=== PATIENT | female | born 1985 | race Caucasian/White ===

== ENCOUNTER 2022-04-01 13:10 | Outpatient (CLI) | payer BC, MEDICAID, SELFPAY ==
[2022-04-01 18:06] LABS: Albumin* 4.4 g/dL (3.3-5.0); Chloride* 103 mmol/L (96-114)
[2022-04-01 18:07] LABS: Potassium* 4.4 mmol/L (3.6-5.1); Sodium* 138 mmol/L (135-149)
[2022-04-01 18:09] LABS: Carbon Dioxide* 25 mmol/L (20-32); Creatinine* 0.8 mg/dL (0.5-1.5); Estimated Glomerular Filt Rate 98 ml/min
[2022-04-01 18:10] LABS: Alanine Aminotransferase* 14 U/L (4-35); Alkaline Phosphatase* 78 U/L (40-150); Aspartate Amino Transferase* 19 U/L (12-35); Bilirubin Total* 0.3 mg/dL (0.1-1.5); Blood Urea Nitrogen* 9 mg/dL (5-24); Calcium* 9.1 mg/dL (8.4-10.6); Glucose* 84 mg/dL (60-115); Total Protein* 7.2 g/dL (6.0-8.3)
== END 2022-04-01 13:11 | disposition home or self-care (01) ==
LOC: NFLDREF 13:11
PROVIDERS: PCP Internal Medicine; Visit Provider Internal Medicine
DX: R53.83 Other fatigue (principal)
CPT/HCPCS: 80053; 87086

== ENCOUNTER 2023-11-21 10:51 | Outpatient (CLI) | payer BC, MEDICAID, SELFPAY ==
--- OUTSIDE RECORDS SUMMARY | 2023-11-23 07:33 | XMS_ITS | Clinical Summary ---
Author Name Unknown Organization [facility] Address [address] [place] [address] Care Team Providers Care Cable Maintainer Name Role Phone No Primary/Referring, Phy Primary Care Provider Unavailable Source Comments You are receiving this document as you are listed as the primary care provider,follow-up provider, or the patient has been referred to you for consultation.This is in compliance with the Medicare and[facility] EHR Incentive Program,which states Providers who transition their patient to another setting of careor provider of care or refers their patient to another provider of care shouldprovide summary care record for each transition of care or referral. [facility] Allergies No known active allergies Medications Medication Sig Dispensed Refills Start Date End Date Status ibuprofen (AKA MOTRIN) 800 MG tabletIndications:LISA SPANN TueSep 26, 2015 10:49 AM Received from: External Pharmacy Indications: PN: LISA BACA TueSep 26, 2015 10:49 AM Received from: External Pharmacy 0 08/09/2015 Active traMADol (AKA ULTRAM) 50 MG tabletIndications:LISA SPANN TueSep 26, 2015 10:49 AM Received from: External Pharmacy Indications: PN: LISA BACA TueSep 26, 2015 10:49 AM Received from: External Pharmacy 0 09/23/2015 Active penicillin V potassium (AKA PEN VEE K) 500 MG tabletIndications:LISA SPANN TueSep 26, 2015 10:49 AM Received from: External Pharmacy Indications: PN: LISA BACA TueSep 26, 2015 10:49 AM Received from: External Pharmacy 0 08/09/2015 Active HYDROcodone-acetamin ophen (AKA NORCO) 7.5-325 MG tabletIndications:DHIRAJ KATARZYNALISA INMAN TueSep 26, 2015 10:49 AM Received from: External Pharmacy Indications: PN: LISA BACA TueSep 26, 2015 10:49 AM Received from: External Pharmacy 0 08/09/2015 Active VENTOLIN HFA 108 (90 Base) MCG/ACT inhaler SMARTSI inhalation Via Inhaler Every 8 Hours PRN 01/28/2023 Active clobetasol (TEMOVATE) 0.05 % cream Apply topically two times a day. 01/21/2023 Active escitalopram oxalate (LEXAPRO) 20 MG tablet Take 1 Tablet (20 mg) by mouth daily. 02/10/2023 Active gabapentin (NEURONTIN) 100 MG capsule SMARTSI Milligram(s) By Mouth Every Night PRN 03/21/2023 Active naproxen (NAPROSYN) 500 MG tablet SMARTSI Milligram(s) By Mouth Twice Daily PRN 11/18/[address] (PROTONIX) 40 MG tablet Take 1 Tablet (40 mg) by mouth daily. 03/18/2023 Active rizatriptan (MAXALT) 10 MG tablet Take by mouth. 03/18/2023 Active tiZANidine (ZANAFLEX) 4 MG tablet Take 1 Tablet (4 mg) by mouth two times a day. 03/21/2023 Active traMADol (ULTRAM) 50 MG tablet Take 2 Tablets (100 mg) by mouth 4 times daily as needed. 03/21/2023 Active triamcinolone acetonide (KENALOG) 0.1 % cream Apply topically two times a day. 01/25/2023 Active Social History Tobacco Use Types Packs/Day Years Used Date Smoking Tobacco: Light Smoker Alcohol Use Standard Drinks/Week Comments Yes 0 (1 standard drink = 0.6 oz pur e alcohol) Sex and Gender Information Value Date Recorded Sex Assigned at Not on file Gender Identity Not on file Sexual Orientation Not on file Last Filed Vital Signs Vital Sign Reading Time Taken Comments Blood Pressure 121/82 09/26/2015 11:05 AM ENGINE SERVICE REPAIRER Pulse - - Temperature - - Respiratory Rate - - Oxygen Saturation - - Inhaled Oxygen Concentration - - Weight 52.2 kg (115 lb) 09/26/2015 11:05 AM ENGINE SERVICE REPAIRER Height 167.6 cm (5' 6) 09/26/2015 11:05 AM ENGINE SERVICE REPAIRER Body Mass Index 18.56 09/26/2015 11:05 AM ENGINE SERVICE REPAIRER Plan of Treatment Health Maintenance Due Date Last Done Comments Cervical Cancer Screening Due 1985 Hep C Screening (Preventive Services) 1985 Pneumococcal (1 - PCV) 11/21/1991 HIV Screening (Preventive Services) 2001 Adult Preventive Visit 11/21/2003 DTaP/Tdap/Td (1 - Tdap) 2004 HepB (1) 2004 COVID-19 Vaccine (1 - 2022-2 4 season) 2023 Influenza (#1) 2023 Zoster/Shingles (1 of 2) 11/21/2035 HPV Vaccine Aged Out No longer eligi ble based on patient's age to complete this topic HepA Aged Out No longer eligi ble based on patient's age to complete this topic Hib Aged Out No longer eligi ble based on patient's age to complete this topic IPV (Polio) Aged Out No longer eligi ble based on patient's age to complete this topic MCV4 Aged Out No longer eligi ble based on patient's age to complete this topic Care Teams Cable Maintainer Relationship Specialty Start Date End Date No Primary/Referring, Phy PCP - General 03/09/23
--- OUTSIDE RECORDS SUMMARY | 2023-11-23 07:33 | XMS_ITS | Clinical Summary ---
Author Name Unknown Organization [facility] Address [place], [place] [address] Care Team Providers Care Roof Promenade Tile Setter Name Role Phone Clem Monzon MD Primary Care Provider Allergies Active Allergy Reactions Criticality Noted Date Comments Diazepam Rash Medium 07/05/2014 Rash all over face and body. Throat also began to itch. Medications Medication Sig Dispensed Refills Start Date End Date Status albuterol HFA (PRO-AIR,VENTOLIN,[place] OVENTIL) 90 mcg/actuation inhaler Inhale 2 Puffs by mouth every 6 hours if needed for Shortness Of Breath. Active multivitamin capsule Take 1 capsule by mouth once daily. Active acetaminophen (TYLENOL) 325 mg tablet Take 2 tablets by mouth 4 times daily if needed for Pain. Max acetaminophen dose: 4000mg in 24 hrs. 60 tablet 0 07/07/2014 Active naproxen (NAPROSYN) 500 mg tablet Take 500 mg by mouth 2 times daily with meals. Active traMADol (ULTRAM) 50 mg tablet Take 50 mg by mouth every 6 hours if needed for Pain. Active cyclobenzaprine (FLEXERIL) 10 mg tablet Take 10 mg by mouth 3 times daily. Active oxyCODONE-acetaminop hen (Percocet) 5-325 mg per tabletIndications:Alessandro penningtonescobar gustafson on left side Take 1 Tablet by mouth every 4 hours if needed for Pain. Max acetaminophen dose: 4000mg in 24 hrs. 12 tablet. 01/11/2021 Active rx oxyCODONE-acetaminop hen, 5-325 mg, (PERCOCET 5-325) tablet (ED DC MED)Indications:Tuan cody stone on left side Take 1 Tablet by mouth every 6 hours if needed. 4 Tablet 01/11/2021 Active tamsulosin (FLOMAX) 0.4 mg capsuleIndications:Chau dooley stone on left side Take 1 Capsule (0.4 mg) by mouth once daily after a meal. 7 Capsule 01/11/2021 Active ondansetron (Zofran ODT) 8 mg disintegrating tabletIndications:Alessandro buenrostro stone on left side 1/2-1 tablet every 8 hours as needed for nausea/vomiting. 10 Tablet 01/11/2021 Active Active Problems Problem Noted Date Diagnosed Date Tobacco abuse 07/05/2014 Overview: Just quit. L4-5, L5-S1 Degeneration of lumbar or lumbosacral intervertebral disc 07/04/2014 L4-5, L5-S1 Displacement of lumbar intervertebral disc without myelopathy 07/04/2014 Family History Medical History Relation Name Comments Heart attack Father of [place] at a ge 42 Relation Name Status Comments Father Social History Tobacco Use Types Packs/Day Years Used Date Smoking Tobacco: Former Cigarettes 0.5 10 0 08/18/2007 - 08/18/2017 Smokeless Tobacco: Never Tobacco Cessation:Counseling Given: Yes Alcohol Use Standard Drinks/Week Comments Yes 0 (1 standard drink = 0.6 oz pur e alcohol) wine occasionally PHQ-2 Answer Date Recorded PHQ-2 Score 1 10/03/2018 Social Connections Answer Date Recorded Frequency of Communication with Friends and Fami ly Not on file 08/01/2021 Financial Resource Strain Answer Date R ecorded Difficulty of Paying Living Expenses Not on file 08/01/2021 Difficulty of Paying Living Expenses Not on file 08/01/2021 Sex and Gender Information Value Date Recorded Sex Assigned at Not on file Gender Identity Not on file Sexual Orientation Not on file Obstetrics History Last Filed Vital Signs Vital Sign Reading Time Taken Comments Blood Pressure 117/69 01/11/2021 6:17 AM CDT Pulse 74 01/11/2021 6:17 AM CDT Temperature 36.9 ??C (98.5 ??F) 01/11/2021 2:45 AM CD T Respiratory Rate 17 01/11/2021 6:17 AM CDT Oxygen Saturation 97% 01/11/2021 6:17 AM CDT Inhaled Oxygen Concentration - - Weight 79.2 kg (174 lb 9.7 oz) 01/11/2021 2:47 A M CDT Height 170.2 cm (5' 7) 01/11/2021 2:47 AM CDT Body Mass Index 27.35 01/11/2021 2:47 AM CDT Plan of Treatment Health Maintenance Due Date Last Done Comments Tdap 1996 HIV for age 15-65 2000 Hepatitis C screening for ag e 18-79 11/21/2003 Tetanus booster 2005 Pap test for age 21-65 2006 Depression screening for age 12+ 08/18/2019 08/18/2018 BMI (ht and wt on same day) for age 18+ 10/03/2021 10/03/2020, 06/29/2019, 08/18/2018 COVID-19 vaccine series (2022- season) 2023 Influenza for age 9-49 04/01/2024 Pneumococcal series for age 6-64 Aged Out No longer eligible b ased on patient's age to complete this topic Medical Devices Implanted Type Area Electrical Prospector Device Identifier Shelf Expiration Date Model / Serial / Lot [id number] 70bone 30cc Mtf Crushed Canclls Pouch [[id number]] [[id number]] Implanted:Qty: 1 on 07/05/2014 at [facility] Explanted:(Quanti ty not on file) Spine Musculoskeletal Transplant 11/07/2016 [id number]# / [id number] / Spacer Lmbr Lg 12hmm 12deg Perimeter - [id number] Implanted:Qty: 1 on 07/05/2014 at [facility] Spine Medtronic Spine/Ortho [id number]# / / [id number] Spacer Lmbr Lg 12hmm 12deg Perimeter - [id number] Implanted:Qty: 1 on 07/05/2014 at [facility] Spine Medtronic Spine/Ortho [id number]# / / [id number] Set Screw Lmbr 4.11f71au Solera 4.75 Ns Brk Off - [id number] Implanted:Qty: 6 on 07/05/2014 at [facility] Spine Medtronic Spine/Ortho [id number]# / / Screw Lmbr Post 5.5x45mm Solera - [id number] Implanted:Qty: 2 on 07/05/2014 at [facility] Spine Medtronic Spine/Ortho [id number] 5# / / Screw Lmbr Post 6.5x45mm Solera - [id number] Implanted:Qty: 2 on 07/05/2014 at [facility] Spine Medtronic Spine/Ortho [id number] 5# / / Screw Lmbr Post 7.5x45mm Solera - [id number] Implanted:Qty: 2 on 07/05/2014 at [facility] Spine Medtronic Spine/Ortho [id number] 5# / / Ciro Lmbr 60mmx4.75cm Solera 4.75 Cvd Co Cr - [id number] Implanted:Qty: 2 on 07/05/2014 at [facility] Spine Medtronic Spine/Ortho [id number] # / / Advance Directives * Full Code (Latest Code Status on File) Date Activated Date Inactivated Comments 03/28/2015 6:14 AM 03/28/2015 3:31 PM * Full Code Date Activated Date Inactivated Comments 07/05/2014 1:27 PM 07/08/2014 3:45 PM * Full Code Date Activated Date Inactivated Comments 07/05/2014 5:53 AM 07/05/2014 1:27 PM Care Teams Roof Promenade Tile Setter Relationship Specialty Start Date End Date Clem Monzon MD [address] [place] [id number] PCP - General 07/03/14
== END 2023-11-21 10:52 | disposition home or self-care (01) ==
LOC: NFLDREF 11-23 07:32
PROVIDERS: PCP Internal Medicine; Referring Provider Internal Medicine; Visit Provider Family Medicine
DX: R30.0 Dysuria (principal); N39.0 Urinary tract infection, site not specified
CPT/HCPCS: 87086

== ENCOUNTER 2023-12-06 08:21 | Outpatient (CLI) | payer BC, MEDICAID, SELFPAY ==
--- OUTSIDE RECORDS SUMMARY | 2023-12-06 08:25 | XMS_ITS | Clinical Summary ---
Author Name Unknown Organization [facility] Address [address] [place] [address] Care Team Providers Care Mail Service Coordinator Name Role Phone No Primary/Referring, Phy Primary Care Provider Unavailable Source Comments You are receiving this document as you are listed as the primary care provider,follow-up provider, or the patient has been referred to you for consultation.This is in compliance with the Medicare and[facility] EHR Incentive Program,which states Providers who transition their patient to another setting of careor provider of care or refers their patient to another provider of care shouldprovide summary care record for each transition of care or referral. [facility] Allergies No known active allergies Medications Medication [...] Comments Blood Pressure 121/82 09/26/2015 11:05 AM LIP AND GATE BUILDER Pulse - - Temperature - - Respiratory Rate - - Oxygen Saturation - - Inhaled Oxygen Concentration - - Weight 52.2 kg (115 lb) 09/26/2015 11:05 AM LIP AND GATE BUILDER Height 167.6 cm (5' 6) 09/26/2015 11:05 AM LIP AND GATE BUILDER Body Mass Index 18.56 09/26/2015 11:05 AM LIP AND GATE BUILDER Plan of Treatment Health Maintenance Due Date Last Done Comments Cervical Cancer Screening Due 1985 Hep C Screening (Preventive Services) 1985 Pneumococcal (1 - PCV) 11/21/1991 HIV Screening (Preventive Services) 2001 Adult Preventive Visit 11/21/2003 DTaP/Tdap/Td (1 - Tdap) 2004 HepB (1) 2004 COVID-19 Vaccine ( - 2022-2 4 season) 2023 Influenza (Season Ended) 2024 Zoster/Shingles (1 of 2) 11/21/2035 HPV Vaccine [...] age to complete this topic Care Teams Mail Service Coordinator Relationship Specialty Start Date End Date No Primary/Referring, Phy PCP - General 03/09/23
--- OUTSIDE RECORDS SUMMARY | 2023-12-06 08:26 | XMS_ITS | Clinical Summary ---
Author Name Unknown Organization [facility] Address [place], [place] [address] Care Team Providers Care Photographic Double Name Role Phone Clem Monzon MD Primary Care Provider [phone] Allergies Active Allergy Reactions Criticality Noted Date Comments Diazepam Rash Medium 07/05/2014 Rash all over face and body. Throat also began to itch. Medications Medication Sig Dispensed Refills Start Date End Date Status albuterol HFA (PRO-AIR,VENTOLIN,[place] OVENTIL) 90 mcg/actuation inhaler Inhale 2 Puffs [...] Relation Name Comments Heart attack Father of [place] at a ge 42 Relation Name Status [...] this topic Medical Devices Implanted Type Area Programmer Engineering And Scientific Device Identifier Shelf Expiration Date Model / Serial / Lot [id number] 70bone 30cc Mtf Crushed Canclls Pouch [[id number]] [[id number]] Implanted:Qty: 1 on 07/05/2014 at [facility] Explanted:(Quanti ty not on file) Spine Musculoskeletal Transplant 11/07/2016 [id number]# / [id number] / Spacer Lmbr Lg 12hmm 12deg Perimeter - [id number] Implanted:Qty: 1 on 07/05/2014 at [facility] Spine Medtronic Spine/Ortho [id number]# / / [id number] Spacer Lmbr Lg 12hmm 12deg Perimeter - [id number] Implanted:Qty: 1 on 07/05/2014 at [facility] Spine Medtronic Spine/Ortho [id number]# / / UF81 Set Screw Lmbr 4.00d65ay Solera 4.75 Ns Brk Off - [id number] Implanted:Qty: 6 on 07/05/2014 at [facility] Spine Medtronic Spine/Ortho [id number]# / / Screw Lmbr Post 5.5x45mm Solera - [id number] Implanted:Qty: 2 on 07/05/2014 at [facility] Spine Medtronic Spine/Ortho [id number] 5# / / Screw Lmbr Post 6.5x45mm Solera - [id number] Implanted:Qty: 2 on 07/05/2014 at [facility] Spine Medtronic Spine/Ortho [id number] 5# / / Screw Lmbr Post 7.5x45mm Solera - [id number] Implanted:Qty: 2 on 07/05/2014 at [facility] Spine Medtronic Spine/Ortho [id number] 5# / / Ciro Lmbr 60mmx4.75cm Solera 4.75 Cvd Co Cr - [id number] Implanted:Qty: 2 on 07/05/2014 at [facility] Spine Medtronic Spine/Ortho [id number] # / / Advance Directives * Full Code (Latest Code Status on File) Date Activated Date Inactivated Comments 03/28/2015 6:14 AM 03/28/2015 3:31 PM * Full Code Date Activated Date Inactivated Comments 07/05/2014 1:27 PM 07/08/2014 3:45 PM * Full Code Date Activated Date Inactivated Comments 07/05/2014 5:53 AM 07/05/2014 1:27 PM Care Teams Photographic Double Relationship Specialty Start Date End Date Clem Monzon MD [address] [place] [id number] PCP - General 07/03/14
== END 2023-12-06 08:22 | disposition home or self-care (01) ==
LOC: NFLDREF 08:23
PROVIDERS: PCP Internal Medicine; Visit Provider Internal Medicine
DX: R53.83 Other fatigue (principal); Z13.228 Encounter for screening for other metabolic disorders; Z13.220 Encounter for screening for lipoid disorders; Z13.0 Encounter for screening for diseases of the blood and blood-forming organs and certain disorders involving the immune mechanism
CPT/HCPCS: 80053; 80061; 83540; 83550

== ENCOUNTER 2024-02-15 15:49 | Outpatient (CLI) | payer BC, MEDICAID, SELFPAY ==
--- OUTSIDE RECORDS SUMMARY | 2024-02-18 14:35 | XMS_ITS | Clinical Summary ---
[facility] Organization [facility] Address [address] [place] [address] Care Team Providers Care Administrative Analyst Name Role Phone No Primary/Referring, Phy Primary Care Provider Unavailable Source Comments You are receiving this document as you are listed as the primary care provider,follow-up provider, or the patient has been referred to you for consultation.This is in compliance with the Medicare and[facility] EHR Incentive Program,which states Providers who transition their patient to another setting of careor provider of care or refers their patient to another provider of care shouldprovide summary care record for each transition of care or referral. [facility] Allergies No known active allergies Medications Medication [...] HYDROcodone-acetamin ophen (AKA NORCO) 7.5-325 MG tabletIndications:DHIRAJ COLÓNLISA INMAN TueSep 26, 2015 10:49 AM Received [...] Comments Blood Pressure 121/82 09/26/2015 11:05 AM CORN HUSKER Pulse - - Temperature - - Respiratory Rate - - Oxygen Saturation - - Inhaled Oxygen Concentration - - Weight 52.2 kg (115 lb) 09/26/2015 11:05 AM CORN HUSKER Height 167.6 cm (5' 6) 09/26/2015 11:05 AM CORN HUSKER Body Mass Index 18.56 09/26/2015 11:05 AM CORN HUSKER Plan of Treatment Health Maintenance Due Date Last Done Comments Cervical Cancer Screening Due 1985 Hep C Screening (Preventive Services) 1985 Pneumococcal (1 - PCV) 11/21/1991 HIV Screening (Preventive Services) 2001 Adult Preventive Visit 11/21/2003 DTaP/Tdap/Td (1 - Tdap) 2004 HepB (1) 2004 COVID-19 Vaccine (1 - 2022-2 4 season) 2023 Influenza (#1) 2024 Zoster/Shingles (1 of 2) 11/21/2035 HPV [...] age to complete this topic Care Teams Administrative Analyst Relationship Specialty Start Date End Date No Primary/Referring, Phy PCP - General 03/09/23
--- OUTSIDE RECORDS SUMMARY | 2024-02-18 14:35 | XMS_ITS | Clinical Summary ---
Author Organization [facility] Address [place], [place] [address] Care Team Providers Care Mold Shaker Name Role Phone Clme Monzon MD Primary Care Provider Allergies Active Allergy Reactions Criticality Noted Date Comments Diazepam Rash Medium 07/05/2014 Rash all over face and body. Throat also began to itch. Medications Medication Sig Dispensed Refills Start Date End Date Status albuterol HFA (PRO-AIR,VENTOLIN,[place] OVENTIL) 90 mcg/actuation inhaler Inhale 2 Puffs [...] hen (Percocet) 5-325 mg per tabletIndications:Alessandro penningtonescobar stone on left side Take 1 Tablet [...] Relation Name Comments Heart attack Father of [place] at a ge 42 Relation Name Status [...] this topic Medical Devices Implanted Type Area Slip Mixer Device Identifier Shelf Expiration Date Model / Serial / Lot [id number] 70bone 30cc Mtf Crushed Canclls Pouch [[id number]] [[id number]] Implanted:Qty: 1 on 07/05/[address] [facility] Explanted:(Quanti ty not on file) Spine Musculoskeletal Transplant 11/07/2016 [id number]# / [id number] / Spacer Lmbr Lg 12hmm 12deg Perimeter - [id number] Implanted:Qty: 1 on 07/05/[address] [facility] Spine Medtronic Spine/Ortho [id number]# / / [id number] Spacer Lmbr Lg 12hmm 12deg Perimeter - [id number] Implanted:Qty: 1 on 07/05/[address] [facility] Spine Medtronic Spine/Ortho [id number]# / / [id number] Set Screw Lmbr 4.97w65mk Solera 4.75 Ns Brk Off - [id number] Implanted:Qty: 6 on 07/05/[address] [facility] Spine Medtronic Spine/Ortho [id number]# / / Screw Lmbr Post 5.5x45mm Solera - [id number] Implanted:Qty: 2 on 07/05/[address] [facility] Spine Medtronic Spine/Ortho [id number] 5# / / Screw Lmbr Post 6.5x45mm Solera - [id number] Implanted:Qty: 2 on 07/05/[address] [facility] Spine Medtronic Spine/Ortho [id number] 5# / / Screw Lmbr Post 7.5x45mm Solera - [id number] Implanted:Qty: 2 on 07/05/[address] [facility] Spine Medtronic Spine/Ortho [id number] 5# / / Ciro Lmbr 60mmx4.75cm Solera 4.75 Cvd Co Cr - [id number] Implanted:Qty: 2 on 07/05/[address] [facility] Spine Medtronic Spine/Ortho [id number] # / / Advance Directives * Full Code (Latest Code Status on File) Date Activated Date Inactivated Comments 03/28/2015 6:14 AM 03/28/2015 3:31 PM * Full Code Date Activated Date Inactivated Comments 07/05/2014 1:27 PM 07/08/2014 3:45 PM * Full Code Date Activated Date Inactivated Comments 07/05/2014 5:53 AM 07/05/2014 1:27 PM Care Teams Mold Shaker Relationship Specialty Start Date End Date Clem Monzon MD [address] [place] [id number] PCP - General 07/03/14
== END 2024-02-15 15:50 | disposition home or self-care (01) ==
LOC: NFLDREF 02-18 14:33
PROVIDERS: PCP Internal Medicine; Referring Provider Internal Medicine; Visit Provider Family Medicine
DX: R30.0 Dysuria (principal); L71.0 Perioral dermatitis; R21 Rash and other nonspecific skin eruption; N89.8 Other specified noninflammatory disorders of vagina; N39.0 Urinary tract infection, site not specified
CPT/HCPCS: 87086

== ENCOUNTER 2024-05-22 13:02 | Outpatient (CLI) | payer BC, MEDICAID, SELFPAY ==
--- NOTE | 2024-05-22 13:00 | CRLHL7_ITS ---
For Patients: As a result of the Century Cures Act, medical imaging exams and procedure reports are released immediately into your electronic medical record. You may view this report before your referring provider. If you have questions, please contact your health care provider. Indication: Sinus pain. Technique: Noncontrast axial CT of the paranasal sinuses with coronal reformats are provided. No comparisons. Findings: The visualized paranasal sinuses are clear. The ostiomeatal complexes are patent bilaterally. The visualized intraorbital contents appear within normal limits. Mild rightward nasal septal deviation. Prominent bilateral malia bullosa, left more so than right. Impression: 1. Mild rightward nasal septal deviation. 2. Otherwise, unremarkable CT of the paranasal sinuses. Please note that all CT scans at this facility use dose modulation, iterative reconstruction, and/or weight-based dosing when appropriate to reduce radiation dose to as low as reasonably achievable. Dictated by Angelo Natarajan MD @ 05/22/2024 7:29:26 PM (Electronically Signed)
--- OUTSIDE RECORDS SUMMARY | 2024-05-22 13:05 | XMS_ITS | Clinical Summary ---
Author Organization [employer] [facility] Address [place], [place] [address] Care Team Providers Care Water And Gas Helper Name Role Phone Clem Monzon MD Primary Care Provider Allergies Active Allergy Reactions Criticality Noted Date Comments Diazepam Rash Medium 07/05/2014 Rash all over face and body. Throat also began to itch. Medications Medication Sig Dispensed Refills Start Date End Date Status albuterol HFA (PRO-AIR,VENTOLIN,MT OVENTIL) 90 mcg/actuation inhaler Inhale 2 Puffs [...] Noted Date Diagnosed Date Tobacco abuse 07/05/2014 Overview (07/05/2014): Just quit. L4-5, L5-S1 Degeneration of lumbar or lumbosacral intervertebral disc 07/04/2014 L4-5, L5-S1 Displacement of lumbar intervertebral disc without myelopathy 07/04/2014 Family History Medical History Relation Name Comments Heart attack Father of [place] at a ge 42 Relation Name Status [...] 10/03/2021 10/03/2020, 06/29/2019, 08/18/2018 COVID-19 vaccine series (2023- season) 2024 Influenza for age 9-49 04/01/2024 Pneumococcal series for age 6-64 Aged Out No longer eligible b ased on patient's age to complete this topic Medical Devices Implanted Type Area Various Exceptionalities Teacher Device Identifier Shelf Expiration Date Model / Serial / Lot [id number] 70bone 30cc Mtf Crushed Canclls Pouch [[id number]] [[id number]] Implanted:Qty: 1 on 07/05/2014 at [facility] Explanted:(Quanti ty not on file) Spine Musculoskeletal Transplant 11/07/2016 [id number]# / [id number] / Spacer Lmbr Lg 12hmm 12deg Perimeter - [id number] Implanted:Qty: 1 on 07/05/2014 at [facility] Spine Medtronic Spine/Ortho [id number]# / / [id number] Spacer Lmbr Lg 12hmm 12deg Perimeter - [id number] Implanted:Qty: 1 on 07/05/2014 at [facility] Spine Medtronic Spine/Ortho [id number]# / / [id number] Set Screw Lmbr 4.31j41rs Solera 4.75 Ns Brk Off - [id number] Implanted:Qty: 6 on 07/05/2014 at [facility] Spine Medtronic Spine/Ortho [id number]# / / Screw Lmbr Post 5.5x45mm Solera - [id number] Implanted:Qty: 2 on 07/05/2014 at [facility] Spine Medtronic Spine/Ortho [id number] 5# / / Screw Lmbr Post 6.5x45mm Solera - [id number] Implanted:Qty: 2 on 07/05/2014 at [facility] Spine Medtronic Spine/Ortho [id number] 5# / / Screw Lmbr Post 7.5x45mm Solera - [id number] Implanted:Qty: 2 on 07/05/2014 at [facility] Spine Medtronic Spine/Ortho [id number] 5# / / Ciro Lmbr 60mmx4.75cm Solera 4.75 Cvd Co Cr - [id number] Implanted:Qty: 2 on 07/05/2014 at [facility] Spine Medtronic Spine/Ortho [id number] # / / Advance Directives * Full Code (Latest Code Status on File) Date Activated Date Inactivated Comments 03/28/2015 6:14 AM 03/28/2015 3:31 PM * Full Code Date Activated Date Inactivated Comments 07/05/2014 1:27 PM 07/08/2014 3:45 PM * Full Code Date Activated Date Inactivated Comments 07/05/2014 5:53 AM 07/05/2014 1:27 PM Care Teams Water And Gas Helper Relationship Specialty Start Date End Date Clem Monzon MD [address] [place] [address] PCP - General 07/03/14
--- OUTSIDE RECORDS SUMMARY | 2024-05-22 13:05 | XMS_ITS | Clinical Summary ---
[facility] Address [address] [place] [address] Care Team Providers Care Tray Filler Name Role Phone No Primary/Referring, Phy Primary Care Provider Unavailable Source Comments You are receiving this document as you are listed as the primary care provider,follow-up provider, or the patient has been referred to you for consultation.This is in compliance with the Medicare and[facility] EHR Incentive Program,which states Providers who transition their patient to another setting of careor provider of care or refers their patient to another provider of care shouldprovide summary care record for each transition of care or referral. CUPS Allergies No known active allergies Medications Medication [...] Comments Blood Pressure 121/82 09/26/2015 11:05 AM DIGITAL ART DIRECTOR Pulse - - Temperature - - Respiratory Rate - - Oxygen Saturation - - Inhaled Oxygen Concentration - - Weight 52.2 kg (115 lb) 09/26/2015 11:05 AM DIGITAL ART DIRECTOR Height 167.6 cm (5' 6) 09/26/2015 11:05 AM DIGITAL ART DIRECTOR Body Mass Index 18.56 09/26/2015 11:05 AM DIGITAL ART DIRECTOR Plan of Treatment Health Maintenance Due Date Last Done Comments Cervical Cancer Screening Due 1985 Hep C Screening (Preventive Services) 1985 Pneumococcal (1 - PCV) 11/21/1991 HIV Screening (Preventive Services) 2001 Adult Preventive Visit 11/21/2003 DTaP/Tdap/Td (1 - Tdap) 2004 HepB (1) 2004 COVID-19 Vaccine (1 - 2023-2 5 season) 2024 Influenza (#1) 2024 Zoster/Shingles (1 of 2) [...] on patient's age to complete this topic RSV Aged Out No longer eligi ble based on patient's age to complete this topic MCV4 Aged Out No longer eligi ble based on patient's age to complete this topic Care Teams Tray Filler Relationship Specialty Start Date End Date No Primary/Referring, Phy PCP - General 03/09/23
== END 2024-05-22 13:03 | disposition home or self-care (01) ==
PROVIDERS: PCP Internal Medicine; Visit Provider Otolaryngology
DX: G89.29 Other chronic pain (principal); J34.2 Deviated nasal septum
CPT/HCPCS: 70486

== ENCOUNTER 2024-07-05 11:11 | Outpatient (CLI) | payer BC, MEDICAID, SELFPAY ==
--- OUTSIDE RECORDS SUMMARY | 2024-07-05 11:13 | XMS_ITS | Clinical Summary ---
Author Organization [employer] [facility] Address [place], [place] [address] Care Team Providers Care Clearing Inspector Name Role Phone Clem Monzon MD Primary [...] Relation Name Comments Heart attack Father of [place] at a ge 42 Relation Name Status [...] 74 01/11/2021 6:17 AM CDT Temperature 36.9 C (98.5 F) 01/11/2021 2:45 AM CDT Respiratory Rate 17 01/11/2021 6:17 AM CDT [...] this topic Medical Devices Implanted Type Area Loss Control Manager Device Identifier Shelf Expiration Date Model / Serial / Lot [id number] 70bone 30cc Mtf Crushed Canclls Pouch [[id number]] [[id number]] Implanted:Qty: 1 on 07/05/2014 at [facility] Explanted:(Quanti ty not on file) Spine Musculoskeletal Transplant 11/07/2016 [id number]# / [id number] / Spacer Lmbr Lg 12hmm 12deg Perimeter - [id number] Implanted:Qty: 1 on 07/05/2014 at [facility] Spine Medtronic Spine/Ortho [id number]# / / [id number] Spacer Lmbr Lg 12hmm 12deg Perimeter - [id number] Implanted:Qty: 1 on 07/05/2014 at [facility] Spine Medtronic Spine/Ortho [id number]# / / UF81 Set Screw Lmbr 4.74u52pm Solera 4.75 Ns Brk Off - [id number] Implanted:Qty: 6 on 07/05/2014 at [facility] Spine Medtronic Spine/Ortho [id number]# / / Screw Lmbr Post 5.5x45mm Solera - [id number] Implanted:Qty: 2 on 07/05/2014 at [facility] Spine Medtronic Spine/Ortho [id number] 5# / / Screw Lmbr Post 6.5x45mm Solera - [id number] Implanted:Qty: 2 on 07/05/2014 at [facility] Spine Medtronic Spine/Ortho [id number] 5# / / Screw Lmbr Post 7.5x45mm Solera - [id number] Implanted:Qty: 2 on 07/05/2014 at [facility] Spine Medtronic Spine/Ortho [id number] 5# / / Ciro Lmbr 60mmx4.75cm Solera 4.75 Cvd Co Cr - [id number] Implanted:Qty: 2 on 07/05/2014 at [facility] Spine Medtronic Spine/Ortho [id number] # / / Advance Directives * Full Code (Latest Code Status on File) Date Activated Date Inactivated Comments 03/28/2015 6:14 AM 03/28/2015 3:31 PM * Full Code Date Activated Date Inactivated Comments 07/05/2014 1:27 PM 07/08/2014 3:45 PM * Full Code Date Activated Date Inactivated Comments 07/05/2014 5:53 AM 07/05/2014 1:27 PM Care Teams Clearing Inspector Relationship Specialty Start Date End Date Clem Monzon MD [address] [place], [place] [id number] PCP - General 07/03/14
--- OUTSIDE RECORDS SUMMARY | 2024-07-05 11:13 | XMS_ITS | Clinical Summary ---
[facility] Address [address] [place] [address] Care Team Providers Care Master Esthetician Name Role Phone No Primary/Referring, Phy Primary Care Provider Unavailable Source Comments You are receiving this document as you are listed as the primary care provider,follow-up provider, or the patient has been referred to you for consultation.This is in compliance with the Medicare and[facility] EHR Incentive Program,which states Providers who transition their patient to another setting of careor provider of care or refers their patient to another provider of care shouldprovide summary care record for each transition of care or referral. Stamp.it Allergies No known active allergies Medications Medication [...] Comments Blood Pressure 121/82 09/26/2015 11:05 AM WEB ART DIRECTOR Pulse - - Temperature - - Respiratory Rate - - Oxygen Saturation - - Inhaled Oxygen Concentration - - Weight 52.2 kg (115 lb) 09/26/2015 11:05 AM WEB ART DIRECTOR Height 167.6 cm (5' 6) 09/26/2015 11:05 AM WEB ART DIRECTOR Body Mass Index 18.56 09/26/2015 11:05 AM WEB ART DIRECTOR Plan of Treatment Health Maintenance [...] age to complete this topic Care Teams Master Esthetician Relationship Specialty Start Date End Date No Primary/Referring, Phy PCP - General 03/09/23
[2024-07-05 16:30] LABS: Bacterial Vaginosis* Negative (Negative); Candida glab/krus NOT DETECTED (No Detected); Candida species NOT DETECTED (No Detected); Trichomonas vaginalis NOT DETECTED (No Detected)
[2024-07-05 17:02] LABS: Chlamydia DNA Amplified* NOT DETECTED (No Detected); GC DNA Amplified* NOT DETECTED (No Detected)
== END 2024-07-05 11:12 | disposition home or self-care (01) ==
PROVIDERS: PCP Internal Medicine; Visit Provider Physician Assistant
DX: R35.0 Frequency of micturition (principal); N89.8 Other specified noninflammatory disorders of vagina
CPT/HCPCS: 81513; 87086; 87186; 87481; 87491; 87591; 87661

== ENCOUNTER 2024-08-27 10:05 | Outpatient (CLI) | payer BC, MEDICAID, SELFPAY | END 2024-08-27 10:06 | disposition home or self-care (01) | LOC: NFLDREF 09-03 00:47 | PROVIDERS: PCP Internal Medicine; Referring Provider Internal Medicine; Visit Provider Physician Assistant | DX: N39.0 Urinary tract infection, site not specified (principal) | CPT/HCPCS: 87086 ==

== ENCOUNTER 2024-08-31 11:51 | Outpatient (CLI) | payer BC, MEDICAID, SELFPAY ==
[2024-08-31 14:07] LABS: Bacterial Vaginosis* Negative (Negative); Candida glab/krus NOT DETECTED (No Detected); Candida species NOT DETECTED (No Detected); Trichomonas vaginalis NOT DETECTED (No Detected)
== END 2024-08-31 11:52 | disposition home or self-care (01) ==
LOC: NFLDREF 11:51
PROVIDERS: PCP Internal Medicine; Visit Provider Physician Assistant
DX: N89.8 Other specified noninflammatory disorders of vagina (principal); N39.0 Urinary tract infection, site not specified
CPT/HCPCS: 81513; 87086; 87481; 87661

== ENCOUNTER 2024-10-11 14:32 | Outpatient (CLI) | payer BC, MEDICAID, OTHER, SELFPAY | END 2024-10-11 14:33 | disposition home or self-care (01) | PROVIDERS: PCP Internal Medicine; Visit Provider Internal Medicine | DX: R53.83 Other fatigue (principal) | CPT/HCPCS: 82306; 82607; 84443 ==